=== PATIENT | female | born 1980 ===

== ENCOUNTER → 2016-11-04 | Outpatient (CLI) | payer OTHER ==
[~2016-11-04] MED LIST: CETI10TA84 PO; METR1GEL3; PRENTAB26 PO
== END | disposition home or self-care (01) ==
LOC: C.LABSPEC 10:24
PROVIDERS: ATTEND Obstetrics & Gynecology
DX: O09.513 Supervision of elderly primigravida, third trimester (principal)

== ENCOUNTER 2016-12-07 11:06 | Inpatient (IN) | payer OTHER ==
[~2016-12-07] VITALS: Ht 160 cm; Wt 85.0 kg
[~2016-12-07 11:06] MED LIST changes: -CETI10TA84 PO
[2016-12-07] MEDS ORDERED: LACTATED RINGER'S 1000ML 1,000 ML IV PRN (11:11)
[2016-12-07] MEDS ORDERED: BUPIVACAINE 0.25% 30 ML VIAL ONE (11:18)
[2016-12-07] MEDS ORDERED: FENTANYL CITRATE INJ 50 MCG/1 ML 2 ML VIAL ONE (11:19)
[2016-12-07] MEDS ORDERED: FENTANYL 2MCG/ML ROPIV 1.25MG/ML 100ML BAG EPI ONE (11:19)
[2016-12-07] MEDS ORDERED: EpHEDrine SULFATE INJ 50 MG/ML AMP ONE (11:19)
[2016-12-07 11:31] LABS: HEMATOCRIT 33.8 % (37-47); MEAN CELL VOLUME 79.7 fL (80-100); MEAN CORPUSCULAR HEMOGLOBIN 25.9 pg (25-34); MEAN CORPUSCULAR HGB CONC 32.5 g/dl (32-36); MEAN PLATELET VOLUME 10.2 fL (7.4-10.4); PLATELET COUNT 177 K/uL (130-400); RED BLOOD COUNT 4.24 M/uL (4.2-5.4); WHITE BLOOD COUNT 9.28 K/uL (4.8-10.8)
[2016-12-07] MEDS: LACTATED RINGER'S 1000ML 1,000 ML IV SCH ×2 (11:42→12:31)
[2016-12-07] MEDS ORDERED: CETI10TA84 PO (11:53)
[2016-12-07] MEDS ORDERED: NALOXONE HCL INJ 1 MG in SODIUM CHLORIDE 0.9% 1000ML 1,000 ML IV PRN ×4 (12:16)
[2016-12-07] MEDS ORDERED: LACTATED RINGER'S 1000ML 500 ML IV PRN ×2 (12:16→15:47)
[2016-12-07 12:26] VITALS: Ht 160 cm; Wt 85.0 kg
[2016-12-07] MEDS ORDERED: FENTANYL 2MCG/ML ROPIV 1.25MG/ML 100ML BAG EPI PRN (12:30)
[2016-12-07] MEDS ORDERED: PROMETHAZINE HCL INJ 25 MG in SODIUM CHLORIDE 0.9% 50ML 50 ML IV PRN (12:30)
[2016-12-07] MEDS ORDERED: DiphenhydrAMINE HCL 50 MG/ML VIAL IV PRN (12:30)
[2016-12-07] MEDS ORDERED: NALBUPHINE HCL INJ 10 MG/ML AMP IV PRN (12:30)
[2016-12-07] MEDS ORDERED: EpHEDrine SULFATE INJ 50 MG/ML AMP IV PRN (12:30)
[2016-12-07] MEDS ORDERED: ONDANSETRON INJ 2 MG/ML 2 ML VIAL IV PRN (12:30)
[2016-12-07] MEDS ORDERED: NALOXONE HCL INJ 0.4 MG/1 ML VIAL/CARP IV PRN (12:30)
[2016-12-07] MEDS ORDERED: OXYTOCIN 30 UNITS/500ML NSS IV ONE (13:10)
[2016-12-07] MEDS ORDERED: OXYTOCIN 30 UNITS/500ML NSS IV PRN ×2 (16:00→18:00)
[2016-12-07] MEDS ORDERED: SUPERCREAM 0.870 % 15GM JAR EXT PRN (18:00)
[2016-12-07] MEDS ORDERED: OXYCODONE/ACETAMINOPHEN 5-325 TAB PO PRN (18:00)
[2016-12-07] MEDS ORDERED: ACETAMINOPHEN/CODEINE 300/30MG TAB PO PRN ×2 (18:00)
[2016-12-07] MEDS ORDERED: LANOLIN OINT EXT PRN ×2 (18:00)
[2016-12-07] MEDS ORDERED: HYDROCORTISONE ACETATE 25 MG SUPP PR PRN (18:00)
[2016-12-07] MEDS ORDERED: ACETAMINOPHEN 325 MG TAB PO PRN (18:00)
[2016-12-07] MEDS ORDERED: BENZOCAINE 20% AER SPR 82.5 GM CAN EXT PRN (18:00)
[2016-12-07] MEDS ORDERED: DIPHTHERIA/TETANUS/PERTUSSIS 0.5 ML SYR/VIAL IM. ONE (18:00)
--- NOTE | 2016-12-07 18:19 | Anesthesia Procedure Note ---
Anesthesia Epidural Removal Nt Date & Time Dec 07, 2016 at 18:18 Vital Signs Pain Intensity: 5.0 Notes Mental Status: alert / awake / arousable, participated in evaluation Nausea / Vomiting: adequately controlled Pain: adequately controlled Airway Patency, RR, SpO2: stable & adequate BP & HR: stable & adequate Hydration State: stable & adequate Neuraxial Anesthesia: was administered Anesthetic Complications: no major complications apparent, pt satisfied with anesthetic care Epidural: removed without complications, with tip intact
[2016-12-07] MEDS: IBUPROFEN 600 MG TAB PO PRN ×2 (18:51→23:44)
[2016-12-07 20:10] VITALS: BP 126/70; PULSE 96; TEMP 36.8
[2016-12-07 23:45] VITALS: BP 129/82; PULSE 79; TEMP 36.5
[2016-12-08 04:10] VITALS: BP 111/69; PULSE 77; TEMP 36.6
[2016-12-08 06:56] LABS: HEMATOCRIT 31.7 % (37-47)
--- NOTE | 2016-12-08 07:49 | Progress Note ---
Subjective Dec 08, 2016. Subjective conversation w/ patient Ambulation: ambulating normally Voiding: no voiding problems Passing Gas: Yes Diet Tolerance: Regular Diet Lochia: Small Feeding Type: Breast Feeding Review of Systems Constitutional: + fever Objective Vital Signs Date Time Temp Pulse Resp B/P Pulse Ox O2 Delivery O2 Flow Rate FiO2 12/08/16 04:10 36.6 77 18 111/69 Room Air 12/07/16 23:45 36.5 79 18 129/82 Room Air 12/07/16 23:45 Room Air 12/07/16 20:10 36.8 96 18 126/70 Room Air 12/07/16 20:10 Room Air Physical Exam General Appearance: WELL-APPEARING Fundus: Firm, Non-Tender Extremities: no pedal edema, no calf tenderness Laboratory Results Last 24 Hours Test 12/07/16 11:24 12/08/16 06:28 White Blood Count 9.28 K/uL Red Blood Count 4.24 M/uL Hemoglobin 11.0 g/dL 10.2 g/dL Hematocrit 33.8 % 31.7 % Mean Corpuscular Volume 79.7 fL Mean Corpuscular Hemoglobin 25.9 pg Mean Corpuscular Hemoglobin Concent 32.5 g/dl RDW Standard Deviation 42.1 fL RDW Coefficient of Variation 14.7 % Platelet Count 177 K/uL Mean Platelet Volume 10.2 fL
[2016-12-08 08:25] VITALS: BP 136/79; PULSE 71; TEMP 36.5; O2SAT 99
[2016-12-08] MEDS: PRENATAL VITAMIN TAB PO SCH (08:29)
[2016-12-08] MEDS: DOCUSATE SODIUM 100 MG CAP PO SCH ×2 (08:29→21:06)
[2016-12-08] MEDS: FERROUS SULFATE 325 MG TAB PO SCH (08:29)
[2016-12-08] MEDS: IBUPROFEN 600 MG TAB PO PRN ×3 (08:30→18:43)
[2016-12-08 12:35] VITALS: BP 121/77; PULSE 78; TEMP 36.7; O2SAT 99
[2016-12-08 15:45] VITALS: BP 126/72; PULSE 60; TEMP 36.7
[2016-12-08] MEDS ORDERED: BISACODYL 5 MG TABEC PO SCH (20:00)
[2016-12-09] VITALS: BP 125/86; PULSE 76; TEMP 36.6
[2016-12-09] MEDS: IBUPROFEN 600 MG TAB PO PRN ×3 (00:10→08:44)
[2016-12-09] MEDS ORDERED: BISACODYL 10 MG SUPP PR PRN (07:00)
[2016-12-09 07:45] VITALS: BP 106/66; PULSE 73; TEMP 36.5; O2SAT 100
[2016-12-09] MEDS: DOCUSATE SODIUM 100 MG CAP PO SCH (08:43)
[2016-12-09] MEDS: PRENATAL VITAMIN TAB PO SCH (08:43)
[2016-12-09] MEDS: FERROUS SULFATE 325 MG TAB PO SCH (08:43)
--- NOTE | 2016-12-09 09:12 | Progress Note ---
Subjective Dec 09, 2016. Subjective conversation w/ patient Ambulation: ambulating normally Voiding: no voiding problems Diet Tolerance: Regular Diet Lochia: Small Feeding Type: Breast Feeding Review of Systems Constitutional: + fever Objective Vital Signs Date Time Temp Pulse Resp B/P Pulse Ox O2 Delivery O2 Flow Rate FiO2 12/09/16 07:45 100 Room Air 12/09/16 07:45 36.5 73 18 106/66 100 Room Air 12/09/16 00:00 Room Air 12/09/16 00:00 36.6 76 18 125/86 Room Air 12/08/16 15:45 36.7 60 18 126/72 Room Air 12/08/16 15:45 Room Air 12/08/16 12:35 36.7 78 20 121/77 99 Room Air Physical Exam General Appearance: WELL-APPEARING Respiratory/Chest: lungs clear Abdomen: normal bowel sounds, non tender Fundus: Firm, Non-Tender Extremities: no pedal edema, no calf tenderness Assessment and Plan Post- Day#: 2
--- NOTE | 2016-12-09 09:14 | Discharge Instructions ---
Discharge Instructions Admission Reason for Admission: Check Labor Discharge Discharge Diagnosis / Problem: term delivery Discharge Goals Goal(s): Routine recovery after delivery Activity Recommendations Activity Limitations: as noted below ACTIVITY RECOMMENDATIONS: * Gradual return to full activity over the next 2-3 weeks. * No lifting - nothing heavier than baby over the next 2-3 weeks. * Do not engage in vigorous exercise, sexual activity or sports until cleared by your physician. * Do not drive or operate any motorized equipment until cleared by your physician. * You may shower/bathe daily. DIET: Resume Previous Diet If Breast-feeding: * Increase caloric intake by 500 calories, eat 3 well balanced meals, 2 high protein snacks a day and drink 6-8 8oz. glasses of fluid per day. BREAST CARE: If you are not breast feeding: * Wear a supportive bra 24 hours a day for one to two weeks. * Avoid stimulating your breasts and nipples as much as possible during the first few weeks after delivery. * When taking a shower, have the warm water hit your back, not breasts. * When your breasts feel full, apply ice packs. Usually three to four times a day helps ease the discomfort. * Take a mild pain medication (Tylenol / Motrin) when you are uncomfortable. If breast feeding: * Use breast milk to lubricate nipples. Lansinoh cream may be used for sore nipples. You do not need to remove cream prior to breast feeding. If using a different brand of cream, check the label for directions regarding removal of cream prior to nursing. * Wear a supportive bra. * If having problems with breasts or breast feeding, call a hematology oncology consultant or your health care provider. OVER THE COUNTER MEDICATION: * For discomfort or pain, you may use Acetaminophen (Tylenol), Ibuprofen (Advil ), or Naproxen (Aleve) following the package directions. * For constipation you may use Colace following the package directions. SPECIAL CARE INSTRUCTIONS: * Vaginal rest (no tampons, douching, intercourse) until after doctor 's visit. * control as discussed with doctor. * Verbalizes understanding of car seat law as reviewed with patient nursing. * Car Seat hand-out given and reviewed with patient by nursing. * Shaken baby information reviewed with patient by nursing. Call you doctor if: * Temperature greater than or equal to 100.4 degrees F or 38.0 degrees C. Take your temperature twice daily for a week. * Bleeding becomes heavier than the heaviest part of your period - saturating a sanitary pad within an hour. * Passing large clots. * Bleeding has a foul smelling odor. * Signs and symptoms of phlebitis: leg pain, warm, red or swollen area on leg. * "Baby Blues" lasting longer than two weeks. ++ If you have had a and incision has increased pain, redness, swelling, presence of any drainage, or if the incision starts to open up. If you have any questions or concerns, call your health care practitioner at [phone]. FOLLOW-UP VISIT: Please call the office at to schedule a 6 week examination. . Current Hospital Diet Patient's current hospital diet: Vegetarian Diet Discharge Diet Recommended Diet: Regular Diet Pending Studies Studies pending at discharge: no Medical Emergencies . Who to Call and When: Medical Emergencies: If at any time you feel your situation is an emergency, please call 911 immediately. . Non-Emergent Contact Non-Emergency issues call your: [employer] Call Non-Emergent contact if: temperature is above 100.5 . . "Provider Documentation" section prepared by Bo Hobson. VTE Core Measure Inpt VTE Proph given/why not?: Treatment not indicated
[2016-12-09 10:30] VITALS: BP_DIAS 66; PULSE 73; TEMP 36.5
--- NOTE | 2016-12-26 11:09 | DELIVERY SUMMARY ---
DATE OF OPERATION: 12/07/2016 DELIVERY NOTE PROCEDURE: Spontaneous vaginal delivery. Mrs. Mercado was admitted in spontaneous labor at term. After she labored for a while, she requested and received epidural anesthesia from which she obtained good pain relief. She had an unstimulated labor, went to full dilatation, pushed out a live male via direct occiput anterior position over an intact perineum. was suctioned through the mouth and the nose. Cord was clamped, cut by the father. Cord blood was taken. My own estimation of 1 and 5 minute Apgars were 9 and 9 respectively. With IV Pitocin running, the placenta was removed intact. Inspection of the peritoneum revealed a first degree laceration. This was repaired with 2-0 Vicryl. The vaginal mucosa was approximated out to beyond the hymenal ring with 2-0 Vicryl. A deep suture of 2-0 Vicryl was used to approximate the bulbocavernosus muscle. A separate deep suture was used to approximate the perineal body and a running subcuticular suture was used to approximate the perineal skin edges. Estimated blood loss for delivery was 300 mL. The patient tolerated the procedure well. I attest to the content of the Intraoperative Record and any orders documented therein. Any exceptio ns are noted below.
== END 2016-12-09 11:00 | disposition home or self-care (01) | DRG 775 ==
LOC: C.OPB 11:06 → C.LD 11:06 → C.OPB 11:13 → C.LD 11:13 → C.OBG 20:13
PROVIDERS: ADMIT Obstetrics & Gynecology; ATTEND Obstetrics & Gynecology
PROC: 0HQ9XZZ Repair Perineum Skin, External Approach (ICD-10-PCS; principal; 2016-12-07)
PROC: 10E0XZZ Delivery of Products of Conception, External Approach (ICD-10-PCS; principal; 2016-12-07)
DX: O48.0 Post-term pregnancy (principal); O70.0 First degree perineal laceration during delivery; Z37.0 Single live birth; Z3A.40 40 weeks gestation of pregnancy

== ENCOUNTER → 2017-01-19 | Outpatient (CLI) | payer OTHER ==
[~2017-01-19] MED LIST changes: +CETI10TA84 PO; -METR1GEL3
== END | disposition home or self-care (01) ==
LOC: C.PAPS 15:49
PROVIDERS: ATTEND Obstetrics & Gynecology
DX: Z39.2 Encounter for routine postpartum follow-up (principal)